=== PATIENT | female | born 1990 | race Caucasian/White ===

== ENCOUNTER 2018-12-08 21:45 | Emergency (ER) | payer MEDICAID ==
[~2018-12-08] VITALS: Ht 160 cm; Wt 110.7 kg
[2018-12-08 22:25] LABS: Basophils # (auto) 0 uL; Basophils % (auto) 0.3 % (0.0-2.0); Eosinophils # (auto) 0.1 uL; Eosinophils % (auto) 1.5 % (0.0-7.0); Hematocrit 42.5 % (36.0-46.0); Hemoglobin 14.5 g/dL (12.2-16.2); Lymphocytes % (auto) 10.9 % (10.0-50.0); Mean Corpuscular Hemoglobin 30.3 pg (28.0-32.0); Mean Corpuscular Hgb Conc. 34.1 g/dL (32.0-36.0); Mean Corpuscular Volume 88.7 fL (80.0-100.0); Monocytes # (auto) 0.7 uL; Monocytes % (auto) 7.3 % (0.0-12.0); Neutrophils # (auto) 7.2 uL; Platelet Count (auto) 292 10^3/uL (140-450); Red Blood Cells 4.79 10^6/uL (4.0-5.20)
[2018-12-08 22:32] LABS: Urine Bacteria NONE SEEN /hpf (None Seen); Urine Blood TRACE /uL (Negative); Urine Specific Gravity 1.015 (1.001-1.035); Urine WBC 10 /hpf (0 - 5)
[2018-12-08 22:46] LABS: Albumin 3.3 g/dL (3.4-5.0); Calcium 8.7 mg/dL (8.5-10.1); Potassium 4.2 mmol/L (3.5-5.1)
[2018-12-08 22:50] LABS: BUN/Creatinine Ratio 7.9; Bilirubin, Total 0.7 mg/dL (0.2-1.0); Total Protein 7.1 g/dL (6.4-8.2)
[2018-12-09] MEDS ORDERED: SODIUM CHLORIDE 0.9% 1,000 ML IV ONE (05:00)
[2018-12-09 06:11] VITALS: BP 119/67
== END 2018-12-09 07:00 | disposition home or self-care (01) ==
LOC: ER 21:58
DX: O21.8 Other vomiting complicating pregnancy (principal); O23.41 Unspecified infection of urinary tract in pregnancy, first trimester; O99.331 Smoking (tobacco) complicating pregnancy, first trimester; O26.891 Other specified pregnancy related conditions, first trimester; E86.0 Dehydration; Z88.2 Allergy status to sulfonamides; Z3A.01 Less than 8 weeks gestation of pregnancy
CPT/HCPCS: 36415; 76801; 76817; 80053; 81001; 81025; 84702; 85025; 96360; 99284; J7030

== ENCOUNTER → 2018-12-26 | Outpatient (CLI) | payer MEDICAID ==
[2018-12-26 10:07] LABS: Basophils # (auto) 0.1 uL; Basophils % (auto) 0.8 % (0.0-2.0); Eosinophils # (auto) 0.3 uL; Eosinophils % (auto) 3.4 % (0.0-7.0); Hematocrit 41.1 % (36.0-46.0); Hemoglobin 14.1 g/dL (12.2-16.2); Lymphocytes # (auto) 1.9 uL; Lymphocytes % (auto) 20.7 % (10.0-50.0); Mean Corpuscular Hemoglobin 30.4 pg (28.0-32.0); Mean Corpuscular Hgb Conc. 34.3 g/dL (32.0-36.0); Mean Corpuscular Volume 88.6 fL (80.0-100.0); Monocytes # (auto) 0.6 uL; Monocytes % (auto) 6.3 % (0.0-12.0); Neutrophils # (auto) 6.3 uL; Neutrophils % (auto) 68.8 % (37.0-80.0); Platelet Count (auto) 293 10^3/uL (140-450); Red Blood Cells 4.64 10^6/uL (4.0-5.20); Red Cell Distribution Width 13.2 % (11.8-14.3); White Blood Cell 9.1 10^3/uL (4.4-10.8)
[2018-12-26 11:17] LABS: Alcohol, Urine < 3.0 mg/dL (0-5); Amphetamine Screen, Urine NEGATIVE (NEGATIVE); Barbiturate Scree,Urine NEGATIVE (NEGATIVE); Benzodiazephine Screen, Urine NEGATIVE (NEGATIVE); Cannabinoid Screen, Urine NEGATIVE (NEGATIVE); Cocaine Screen, Urine NEGATIVE (NEGATIVE); Opiate Scree,Urine NEGATIVE (NEGATIVE); Phencyclidine Screen, Urine NEGATIVE (NEGATIVE)
== END | disposition home or self-care (01) ==
LOC: LAB 09:21
PROVIDERS: ATTEND Specialist
DX: Z34.81 Encounter for supervision of other normal pregnancy, first trimester (principal); Z3A.10 10 weeks gestation of pregnancy
CPT/HCPCS: 36415; 80307; 83036; 85025; 86703; 86762; 86850; 86900; 86901; 87086; 87340; 87591

== ENCOUNTER 2019-07-01 23:16 | Observation (INO) | payer MEDICAID | END 2019-07-02 00:50 | disposition home or self-care (01) | DRG 566 | LOC: LDRP 23:16 | PROVIDERS: ADMIT Obstetrics & Gynecology; ATTEND Obstetrics & Gynecology | DX: O99.89 Other specified diseases and conditions complicating pregnancy, childbirth and the puerperium (principal); M54.5 Low back pain; Z3A.37 37 weeks gestation of pregnancy | CPT/HCPCS: 59025; 81002; G0378 ==

== ENCOUNTER 2019-07-10 17:55 | Observation (INO) | payer MEDICAID | END 2019-07-10 18:58 | disposition home or self-care (01) | DRG 566 | LOC: LDRP 17:55 | PROVIDERS: ADMIT Specialist; ATTEND Specialist | DX: O62.9 Abnormality of forces of labor, unspecified (principal); Z3A.38 38 weeks gestation of pregnancy | CPT/HCPCS: 59025; 81002; G0378 ==

== ENCOUNTER 2019-07-18 07:45 | Observation (INO) | payer MEDICAID | END 2019-07-18 10:30 | disposition home or self-care (01) | DRG 566 | LOC: LDRP 07:45 | PROVIDERS: ADMIT Specialist; ATTEND Specialist | DX: O62.9 Abnormality of forces of labor, unspecified (principal); Z3A.39 39 weeks gestation of pregnancy | CPT/HCPCS: 59025; 81002; G0378 ==

== ENCOUNTER 2019-07-22 09:00 | Observation (INO) | payer MEDICAID ==
[~2019-07-22] VITALS: Ht 160 cm; Wt 126.1 kg
[2019-07-22] MEDS ORDERED: PREN-96 PO (09:48)
== END 2019-07-22 10:25 | disposition home or self-care (01) | DRG 566 ==
LOC: LDRP 09:00
PROVIDERS: ADMIT Obstetrics & Gynecology; ATTEND Obstetrics & Gynecology
DX: O62.9 Abnormality of forces of labor, unspecified (principal); O48.0 Post-term pregnancy; Z3A.40 40 weeks gestation of pregnancy
CPT/HCPCS: 59025; 81002; G0378

== ENCOUNTER 2019-07-22 13:45 | Inpatient (IN) | payer MEDICAID ==
[~2019-07-22] VITALS: Ht 160 cm; Wt 123.4 kg
[~2019-07-22 13:45] MED LIST: PREN-96 PO
[2019-07-22] MEDS ORDERED: LACTATED RINGER'S 1,000 ML IV SCH (14:08)
[2019-07-22] MEDS ORDERED: LACT. RINGERS/OXYTOCIN 20UNITS 1,000 ML IV SCH (14:08)
[2019-07-22] MEDS ORDERED: LIDOCAINE 2%HCL (LOCAL ANESTH.) INJ 20ML MDV ID ONE (14:15)
[2019-07-22] MEDS ORDERED: DERMOPLAST 60ML BOTTLE TOP PRN (14:15)
[2019-07-22] MEDS ORDERED: WITCH HAZEL-GLYCERIN PAD TOP PRN (14:15)
[2019-07-22] MEDS ORDERED: PHISODERM TOP SOLN 240ML BTL TOP PRN (14:15)
[2019-07-22] MEDS ORDERED: NALBUPHINE HCL 10 MG/1ml INJECTION IV PRN (14:15)
[2019-07-22] MEDS ORDERED: PENICILLIN G POT 5MIL/D5 50ML 50 ML IV ONE (14:15)
[2019-07-22] MEDS ORDERED: LIDOCAINE HCL 2 %PF INJ 10ML AMP IJ ONE (14:45)
[2019-07-22] MEDS ORDERED: fentaNYL CITRATE 100 MCG/2 ML VL IV ONE ×2 (14:45→17:15)
[2019-07-22] MEDS ORDERED: fentaNYL W ROPIVACAINE 150 ML EPI SCH ×2 (14:45→17:15)
[2019-07-22] MEDS ORDERED: ePHEDrine SULFATE 50 MG/ML AMP IV ONE ×2 (14:45→17:15)
[2019-07-22 14:54] LABS: Basophils # (auto) 0.1 uL; Basophils % (auto) 0.5 % (0.0-2.0); Eosinophils # (auto) 0.1 uL; Eosinophils % (auto) 0.5 % (0.0-7.0); Hematocrit 38.7 % (36.0-46.0); Hemoglobin 13.4 g/dL (12.2-16.2); Lymphocytes # (auto) 1.2 uL; Mean Corpuscular Hemoglobin 31.9 pg (28.0-32.0); Mean Corpuscular Hgb Conc. 34.7 g/dL (32.0-36.0); Monocytes # (auto) 0.6 uL; Monocytes % (auto) 5.5 % (0.0-12.0); Neutrophils # (auto) 8.3 uL; Neutrophils % (auto) 81.5 % (37.0-80.0); Platelet Count (auto) 241 10^3/uL (140-450); Red Cell Distribution Width 13.2 % (11.8-14.3); White Blood Cell 10.2 10^3/uL (4.4-10.8)
[2019-07-22 15:08] LABS: INR 0.91 (0.9-1.15); Partial Thromboplastin Time 24.7 sec (23.64-32.05)
[2019-07-22 15:15] LABS: Urine Bacteria NONE SEEN /hpf (None Seen); Urine Blood 2+ /uL (Negative); Urine Specific Gravity 1.018 (1.001-1.035); Urine WBC 52 /hpf (0 - 5)
[2019-07-22 15:18] LABS: Alcohol, Urine < 3.0 mg/dL (0-5); Amphetamine Screen, Urine NEGATIVE (NEGATIVE); Barbiturate Scree,Urine NEGATIVE (NEGATIVE); Benzodiazephine Screen, Urine NEGATIVE (NEGATIVE); Cocaine Screen, Urine NEGATIVE (NEGATIVE); Opiate Scree,Urine NEGATIVE (NEGATIVE); Phencyclidine Screen, Urine NEGATIVE (NEGATIVE)
[2019-07-22 15:21] LABS: Albumin 2.4 g/dL (3.4-5.0); Potassium 4.1 mmol/L (3.5-5.1)
[2019-07-22 15:21] LABS: Cannabinoid Screen, Urine NEGATIVE (NEGATIVE)
[2019-07-22 15:24] LABS: BUN/Creatinine Ratio 11.5; Bilirubin, Total 0.4 mg/dL (0.2-1.0); Total Protein 7.1 g/dL (6.4-8.2); Uric Acid 6.3 mg/dL (2.6-6.0)
[2019-07-22] MEDS ORDERED: NALOXONE HCL 0.4 MG/ML VIAL IV ONE (17:15)
[2019-07-22] MEDS ORDERED: LIDOCAINE 2%HCL (LOCAL ANESTH.) INJ 20ML MDV IJ ONE (17:15)
[2019-07-22] MEDS ORDERED: PENICILLIN G POTASSIUM 2,500,000 UNITS in D5W 5% 50 ML IV SCH (18:15)
--- NOTE | 2019-07-22 20:48 | NUR ---
Teaching: Reviewed information in [employer] booklet with patient. Discussed benefits of and risks associated with not . Discussed different positions, proper latch, feeding cues, and baby-led . Provided information of medication side effects related to . All questions and concerns addressed at this time. Patient verbalized understanding of information.
--- NOTE | 2019-07-22 21:21 | NUR ---
Ambulation: Patient OOB with standby assistance by RN. Patient taken to bathroom via wheelchair. Patient unable to void. [facility] teaching provided with returned demonstration by patient. Clean gown provided and bed linen changed. Patient verbalizes she feels dizzy, ammonia salts provided and PT verbalizes she feels better. Patient taken back to bed via wheelchair. No signs of distress.
[2019-07-22] MEDS: IBUPROFEN 600 MG TAB PO PRN (22:06)
[2019-07-22] MEDS ORDERED: AMMONIA 0.33 ML INHALANT IN ONE (23:05)
[2019-07-23] MEDS: IBUPROFEN 600 MG TAB PO PRN ×4 (02:27→20:33)
[2019-07-23 03:30] VITALS: BP 120/69
[2019-07-23 07:06] LABS: RPR Non Reactive (Non Reactive)
[2019-07-23 07:35] VITALS: BP 127/68
--- NOTE | 2019-07-23 08:00 | NUR ---
Ambulation: Patient OOB with no assistance by RN. Patient ambulated to bathroom with steady gait. Patient able to void 550 mL without difficulty. [facility] care performed by patient. Patient ambulated back to bed with steady gait and no distress or dizziness noted.
[2019-07-23 11:10] VITALS: BP 107/59
[2019-07-23 15:30] VITALS: BP 114/61
[2019-07-23 22:00] VITALS: BP 108/60
[2019-07-23 23:00] VITALS: BP 108/60
[2019-07-24 03:30] VITALS: BP 112/68
[2019-07-24] MEDS: IBUPROFEN 600 MG TAB PO PRN (05:30)
--- NOTE | 2019-07-24 07:27 | NUR ---
Discharge: Discharge instructions given as ordered. Pt encouraged to follow up with [facility] as instructed. All questions and concerns addressed. Patient verbalized understanding. Medication reconciliation completed and copy given to patient. All required/requested vaccines given and copies of vaccinations given to patient. Patient encouraged to prepare to depart unit.
--- NOTE | 2019-07-24 07:45 | NUR ---
Prescription called in 400 mg Motrin PO q6h PRN for pain x 30 tabs called in to [facility] pharmacy located at [place] and [address]. Pt to fern picker prescription immediately folowing discharge.
[2019-07-24] MEDS ORDERED: INFLUENZA QUAD 2019-2020 0.5ml SYRG IM ONE (08:00)
--- NOTE | 2019-07-24 08:40 | NUR ---
Discharge: Patient taken to vehicle via wheelchair with all personal belongings, accompanied by staff and family member. No distress noted at time of departure, no adverse changes in status since initial assessment.
== END 2019-07-24 08:40 | disposition home or self-care (01) | DRG 560 ==
LOC: LDRP 13:45
PROVIDERS: ADMIT Obstetrics & Gynecology; ATTEND Obstetrics & Gynecology
PROC: 10D07Z3 Extraction of Products of Conception, Low Forceps, Via Natural or Artificial Opening (ICD-10-PCS; principal; 2019-07-22)
PROC: 0W8NXZZ Division of Female Perineum, External Approach (ICD-10-PCS; 2019-07-22)
PROC: 3E0R3BZ Introduction of Anesthetic Agent into Spinal Canal, Percutaneous Approach (ICD-10-PCS; 2019-07-22)
PROC: 00HU33Z Insertion of Infusion Device into Spinal Canal, Percutaneous Approach (ICD-10-PCS; 2019-07-22)
PROC: 10907ZC Drainage of Amniotic Fluid, Therapeutic from Products of Conception, Via Natural or Artificial Opening (ICD-10-PCS; 2019-07-22)
DX: O69.81X0 Labor and delivery complicated by cord around neck, without compression, not applicable or unspecified (principal); Z37.0 Single live birth; Z3A.40 40 weeks gestation of pregnancy
CPT/HCPCS: 36415; 51702; 59409; 62282; 80053; 80307; 81001; 84112; 84550; 85025; 85610; 85730; 86592; 86850; 86900; 86901; 94760; 96361; 96372; G0378; J2540; J2590; J3010; J7060

== ENCOUNTER → 2021-08-19 | Outpatient (CLI) | payer MEDICAID | END | disposition home or self-care (01) | LOC: LAB 16:32 | PROVIDERS: ATTEND Physician Assistant | DX: N39.0 Urinary tract infection, site not specified (principal) | CPT/HCPCS: 87086 ==